=== PATIENT | female | born 2000 | race Caucasian/White ===

== ENCOUNTER 2018-12-18 17:55 | Inpatient (IN) | payer OTHER ==
[2018-12-18] MEDS ORDERED: OXYTOCIN 30 UNITS/LR 500 ML IV ×2 (19:00)
[2018-12-18] MEDS ORDERED: CARBOPROST 250 MCG INJ IM (19:00)
[2018-12-18] MEDS ORDERED: MISOPROSTOL 200 MCG TAB PR (19:00)
[2018-12-18] MEDS ORDERED: LIDOCAINE 1% (MPF) 30 ML INJ INJ (19:00)
[2018-12-18] MEDS ORDERED: METHYLERGONOVINE 0.2 MG INJ IM (19:00)
[2018-12-18] MEDS ORDERED: BUTORPHANOL 2 MG INJ IV (19:00)
[2018-12-18] MEDS: LACTATED RINGER'S 1,000 ML IV (20:06)
[2018-12-18 20:14] LABS: ADD MAN DIFF? NO
[2018-12-18 20:19] LABS: WHITE BLOOD COUNT 10.2 10^3/ul (4.8-10.8)
[2018-12-18 20:19] LABS: BASOPHIL # 0.1 10^3/ul (0.0-0.1); BASOPHILS % 0.5 % (0.0-2.0); EOSINOPHILS % 0.3 % (0.0-7.0); HEMATOCRIT 35.4 % (37.0-47.0); HEMOGLOBIN 11.5 g/dl (12.0-16.0); LYMPHOCYTES # 1.8 10^3/ul (0.8-2.9); LYMPHOCYTES % 17.4 % (18.0-55.0); MEAN CORPUSCULAR HEMOGLOBIN 24.7 pg (29.0-33.0); MEAN CORPUSCULAR HGB CONC 32.5 g/dl (32.0-37.0); MEAN CORPUSCULAR VOLUME 76.1 fl (72.0-104.0); MONOCYTE # 0.8 10^3/ul (0.3-0.9); MONOCYTES % 7.4 % (0.0-13.0); NEUTROPHIL # 7.6 10^3/ul (1.6-7.5); NEUTROPHILS % 74.1 % (30.0-74.0); PLATELET COUNT 291 10^3/UL (140-415); RED BLOOD COUNT 4.65 10^6/ul (4.20-5.40); RED CELL DISTRIBUTION WIDTH 13.6 % (11.5-14.5)
[2018-12-18 20:37] LABS: INR 0.83; PROTIME 11.5 Sec (11.9-14.9); PT RATIO 0.9
[2018-12-18 20:38] LABS: PARTIAL THROMBOPLASTIN TIME 26.3 Sec (23.0-35.0)
[2018-12-18] MEDS: OXYTOCIN 30 UNITS/LR 500 ML IV (21:03)
[2018-12-19] MEDS: LACTATED RINGER'S 1,000 ML IV ×4 (02:34→13:48)
[2018-12-19] MEDS ORDERED: FENTAnyl 50 MCG/ML VIAL (04:13)
[2018-12-19] MEDS ORDERED: FENTAnyl 2MCG/ML-ROPIV 0.2% 100 ML (04:13)
[2018-12-19] MEDS ORDERED: NALOXONE (0.4 MG/ML) INJ IV (04:30)
[2018-12-19] MEDS: FENTAnyl 2MCG/ML-ROPIV 0.2% 100 ML BAG EPI ×2 (05:02→09:43)
[2018-12-19 09:37] LABS: HEPATITIS B SURFACE ANTIGEN NEGATIVE (NEGATIVE)
[2018-12-19] MEDS: ONDANSETRON 4 MG INJ IV (10:23)
[2018-12-19] MEDS: LACTATED RINGER'S 1,000 ML IV* (15:02)
[2018-12-19] MEDS: MINERAL OIL LIGHT 10 ML VIAL TOP (15:14)
[2018-12-19] MEDS ORDERED: HYDROCODONE/APAP (5/325) TAB PO ×2 (15:30)
[2018-12-19] MEDS: OXYTOCIN 30 UNITS/LR 500 ML IV ×2 (15:30→20:16)
[2018-12-19] MEDS ORDERED: DIPHENHYDRAMINE 50 MG INJ IV (15:30)
[2018-12-19] MEDS ORDERED: OXYTOCIN 30 UNITS/LR 500 ML IV (15:30)
[2018-12-19] MEDS ORDERED: ONDANSETRON 4 MG TAB PO (15:30)
[2018-12-19] MEDS ORDERED: MISOPROSTOL 200 MCG TAB PR (15:30)
[2018-12-19] MEDS ORDERED: NA PHOSPHATE/BIPHOS 133 ML ENEMA PR (15:30)
[2018-12-19] MEDS ORDERED: CARBOPROST 250 MCG INJ IM (15:30)
[2018-12-19] MEDS ORDERED: SENNA/DOCUSATE NA (8.6MG/50MG) TAB PO (15:30)
[2018-12-19] MEDS ORDERED: DIBUCAINE 1% 30 GM OINT TOP (15:30)
[2018-12-19] MEDS ORDERED: ONDANSETRON 4 MG INJ IV (15:30)
[2018-12-19] MEDS ORDERED: MAGNESIUM HYDROXIDE 30ML CUP PO (15:30)
[2018-12-19] MEDS ORDERED: DIPHENHYDRAMINE 25 MG CAP PO (15:30)
[2018-12-19 15:52] LABS: CBV Base Excess -6.2 mmol/L; CBV COHb 0.3 %; CBV Oxygen Sat 20.3 mmHG; CBV Total Hemglobin 13.3 g/dl; Cord Blood Venous AADO2 83.5 mmHg; Cord Blood Venous pO2 14.5 mmHG (15.0-45.0); Fraction OxyHgb Cord Venous 19.8 %; MODE ROOM AIR; MetHgb Cord Venous 2.2 %; Sample Type CBV; Site CORD
[2018-12-19] MEDS: MISOPROSTOL 200 MCG TAB PO (16:00)
[2018-12-19 16:08] LABS: RAPID PLASMA REAGIN NONREACTIVE (NR)
[2018-12-19] MEDS: IBUPROFEN 600 MG TAB PO ×2 (17:55→18:00)
[2018-12-19] MEDS: BENZOCAINE 20% 56 ML SPRAY TOP (20:17)
[2018-12-19] MEDS: WITCH HAZEL/GLYCERIN PAD PR (20:17)
[2018-12-19] MEDS: LANOLIN HPA 1 PKT TOP (20:18)
[2018-12-19] MEDS: SENNA/DOCUSATE NA (8.6MG/50MG) TAB PO (22:13)
[2018-12-20] MEDS: IBUPROFEN 600 MG TAB PO ×4 (06:46→17:33)
[2018-12-20 06:48] LABS: ADD MAN DIFF? NO
[2018-12-20 06:52] LABS: BASOPHILS % 0.1 % (0.0-2.0); EOSINOPHILS % 0.1 % (0.0-7.0); HEMATOCRIT 27.3 % (37.0-47.0); HEMOGLOBIN 8.9 g/dl (12.0-16.0); LYMPHOCYTES # 2.1 10^3/ul (0.8-2.9); LYMPHOCYTES % 14.9 % (18.0-55.0); MEAN CORPUSCULAR HGB CONC 32.6 g/dl (32.0-37.0); MEAN CORPUSCULAR VOLUME 76.7 fl (72.0-104.0); MONOCYTE # 1.5 10^3/ul (0.3-0.9); MONOCYTES % 10.6 % (0.0-13.0); NEUTROPHIL # 10.4 10^3/ul (1.6-7.5); NEUTROPHILS % 73.9 % (30.0-74.0); PLATELET COUNT 201 10^3/UL (140-415); RED BLOOD COUNT 3.56 10^6/ul (4.20-5.40)
[2018-12-20] MEDS: SENNA/DOCUSATE NA (8.6MG/50MG) TAB PO ×2 (08:59→22:00)
[2018-12-20 11:28] LABS: RHOGAM PROFILE 1 1
[2018-12-21] MEDS: IBUPROFEN 600 MG TAB PO ×2 (00:15→05:40)
[2018-12-21] MEDS: LANOLIN HPA 1 PKT TOP (00:54)
[2018-12-21] MEDS: DIPHTH/TET/ACEL PERTUSS (ADULT) 0.5 ML VIAL IM* (09:00)
[2018-12-21] MEDS: VARICELLA VACCINE LIVE/PF 1,350 UNIT/0.5 ML ML SC* (09:00)
[2018-12-21] MEDS: SENNA/DOCUSATE NA (8.6MG/50MG) TAB PO (10:53)
[2018-12-21] MEDS: MEASLES,MUMPS,RUBELLA VACCINE INJ SC* (10:56)
== END 2018-12-21 12:15 | disposition home or self-care (01) | DRG 807 ==
LOC: L-D 17:55 → PP1 12-19 18:55 → L-D 21:56
PROVIDERS: Specialist
PROC: 10E0XZZ Delivery of Products of Conception, External Approach (ICD-10-PCS; principal; 2018-12-19)
PROC: 0HQ9XZZ Repair Perineum Skin, External Approach (ICD-10-PCS; 2018-12-19)
DX: O48.0 Post-term pregnancy (principal); Z37.0 Single live birth; O70.0 First degree perineal laceration during delivery; Z3A.40 40 weeks gestation of pregnancy
CPT/HCPCS: 36415; 62322; 76815; 82803; 85025; 85610; 85730; 86592; 86850; 86870; 86885; 86900; 86901; 87340; 90716